=== PATIENT | female | born 1990 | race Hispanic/Latino ===

== ENCOUNTER 2019-02-27 22:06 | Emergency (ER) | payer SELFPAY ==
[2019-02-27] MEDS ORDERED: Lidocaine Viscous Sol 2% 15 ml UD Cup ONE (22:21)
[2019-02-27] MEDS ORDERED: Mag-Al 1200 mg/1200 mg/30 ML UDCUP ONE (22:21)
[2019-02-27 22:47] LABS: #Basophils 0.1 thou/uL (0.0-0.2); #Eosinphils 0.6 thou/uL (0.0-0.7); #Lymphocytes 2.5 thou/uL (1.20-3.40); #Monocytes 0.6 thou/uL (0.11-0.59); #Neutrophils 5.3 thou/uL (1.40-6.50); %Basophils 0.9 % (0.0-1.0); %Eosinophils 6.6 % (0.0-10.0); %Lymphocytes 27.3 % (21.0-51.0); %Monocytes 6.2 % (0.0-10.0); Hemoglobin 16.4 g/dL (12.0-16.0); Mean Corpuscular HGB CONC 32.5 g/dL (32.0-36.0); Mean Corpuscular Hemoglobin 27.4 pg (27.0-31.0); Mean Corpuscular Volume 84.3 fL (78.0-98.0); Mean Platelet Volume 7.4 fL (7.4-10.4); Platelet Count 341 thou/uL (130-400); RBC Distribution Width 12.2 % (11.5-14.5); Red Blood Cell (RBC) Count 5.98 mill/uL (4.20-5.40)
--- NOTE | 2019-02-27 23:08 | ULT ---
Sonogram right upper quadrant HISTORY: Upper abdomen pain. FINDINGS: Shadowing stones and sludge are present within the gallbladder lumen. Patient was reportedl y tender over the gallbladder fossa at the time of the exam.There is no gallbladder wall thickening or pericholecystic fluid. Common duct is 0.4 cm. Liver is diffusely echogenic without focal mass or i ntrahepatic biliary dilatation. No free fluid. IMPRESSION: Cholelithiasis. Positive sonographic Do sign may reflect acute inflammation. Clinical correlation regarding other signs and symptoms of acute cholecystitis is required. No evidence of central biliary obstruction. Hepatic steatosis.
[2019-02-27 23:43] LABS: Albumin 4.1 g/dL (3.5-5.0)
[2019-02-27 23:44] LABS: Chloride 108 mmol/L (98-107); Potassium 4.8 mmol/L (3.5-5.1); Sodium 140 mmol/L (136-145)
[2019-02-27 23:45] LABS: Calcium 9.2 mg/dL (7.8-10.44)
[2019-02-27 23:46] LABS: Globulin 3.5 g/dL (2.4-3.5); Glucose 90 mg/dL (70-105); Protein, Total 7.6 g/dL (6.0-8.3)
[2019-02-27 23:47] LABS: Anion Gap 16 mmol/L (10-20); Bilirubin, Total 0.5 mg/dL (0.2-1.2); Carbon Dioxide 21 mmol/L (22-29)
[2019-02-27 23:48] LABS: Alkaline Phosphatase 88 U/L (40-150)
[2019-02-27 23:49] LABS: Calc. Creatinine Clearance 0 mL/min (70-130); Estimated GFR-MDRD Greater than 90
[2019-02-27 23:50] LABS: BUN (Urea Nitrogen) 7 mg/dL (7.0-18.7)
[2019-02-27 23:51] LABS: ALT (SGPT) 57 U/L (8-55); AST (SGOT) 45 U/L (5-34)
[2019-02-27 23:52] LABS: Lipase 18 U/L (8-78)
[2019-02-27] MEDS ORDERED: Fentanyl 100 MCG/2 ML VIAL ONE (23:59)
== END 2019-02-28 00:35 | disposition home or self-care (01) ==
LOC: ERS 22:06
DX: K80.20 Calculus of gallbladder without cholecystitis without obstruction (principal); F32.9 Major depressive disorder, single episode, unspecified; J45.909 Unspecified asthma, uncomplicated; Z79.899 Other long term (current) drug therapy
CPT/HCPCS: 36415; 76705; 80053; 83690; 85025; 96361; 96372; 96374; J0500; J3010

== ENCOUNTER 2019-03-06 21:31 | Emergency (ER) | payer SELFPAY ==
[2019-03-06 22:10] LABS: #Basophils 0.1 thou/uL (0.0-0.2); #Eosinphils 0.6 thou/uL (0.0-0.7); #Lymphocytes 1.7 thou/uL (1.20-3.40); #Monocytes 0.5 thou/uL (0.11-0.59); #Neutrophils 5.6 thou/uL (1.40-6.50); %Basophils 0.9 % (0.0-1.0); %Eosinophils 6.8 % (0.0-10.0); %Lymphocytes 20.3 % (21.0-51.0); %Monocytes 5.4 % (0.0-10.0); %Neutrophils 66.6 % (42.0-75.0); Hemoglobin 14.3 g/dL (12.0-16.0); Mean Corpuscular HGB CONC 33.5 g/dL (32.0-36.0); Mean Corpuscular Hemoglobin 28.6 pg (27.0-31.0); Mean Corpuscular Volume 85.2 fL (78.0-98.0); Mean Platelet Volume 6.8 fL (7.4-10.4); Platelet Count 330 thou/uL (130-400); Red Blood Cell (RBC) Count 4.99 mill/uL (4.20-5.40); White Blood Cell (WBC) Count 8.3 thou/uL (4.8-10.8)
[2019-03-06 22:30] LABS: ALT (SGPT) 45 U/L (8-55); AST (SGOT) 27 U/L (5-34); Albumin 4.3 g/dL (3.5-5.0); Alkaline Phosphatase 92 U/L (40-150); Anion Gap 15 mmol/L (10-20); BHCG - Serum Negative (NEGATIVE); BUN (Urea Nitrogen) 7 mg/dL (7.0-18.7); Bilirubin, Total 0.4 mg/dL (0.2-1.2); Calc. Creatinine Clearance 0 mL/min (70-130); Calcium 9.8 mg/dL (7.8-10.44); Carbon Dioxide 27 mmol/L (22-29); Chloride 105 mmol/L (98-107); Estimated GFR-MDRD Greater than 90; Globulin 3.3 g/dL (2.4-3.5); Glucose 125 mg/dL (70-105); Lipase 20 U/L (8-78); Potassium 4.5 mmol/L (3.5-5.1); Pregs Control Background? CLEAR/WHITE (CLR/WHITE); Pregs Control Bar Appear? YES (CONTROL BAR); Protein, Total 7.6 g/dL (6.0-8.3); Sodium 142 mmol/L (136-145)
--- NOTE | 2019-03-06 22:39 | ULT ---
EXAM: US Gallbladder RUQ CLINICAL HISTORY: Recent diagnosis of cholelithiasis.. COMPARISON: 02/27/2019 FINDINGS: Pancreas: Obscured by bowel gas Liver:Persistent diffuse echogenicity, limiting evaluation. Right hepatic lobe measures 15.3 cm Portal vein: Patent with appropriate directional flow Gallbladder: Redemonstration of a 3 cm gallstone. There is also sludge. No pericholecystic fluid or g allbladder wall thickening. Do's sign:Negative Bile ducts: Suboptimal evaluation the common bile duct. Right kidney: No hydronephrosis. Right kidney measures 12.1 cm in maximum dimension.. IMPRESSION: 1. Persistent increased echogenicity of the liver may be due to hepatic steatosis or hepatocellular d isease. Correlate clinically 2. Sonographic guidance of cholelithiasis without evidence of cholecystitis. HIDA scan may be benefic ial.
== END 2019-03-07 00:10 | disposition home or self-care (01) ==
LOC: ERS 21:31
DX: K80.20 Calculus of gallbladder without cholecystitis without obstruction (principal); F32.9 Major depressive disorder, single episode, unspecified; J45.909 Unspecified asthma, uncomplicated; Z79.899 Other long term (current) drug therapy
CPT/HCPCS: 36415; 76705; 80053; 83690; 84703; 85025